=== PATIENT | female | born 1980 | race Two or more races ===

== ENCOUNTER → 2017-04-01 | Outpatient (CLI) | payer OTHER ==
[2015-07-27 15:28] VITALS: BP 120/79
--- NOTE | 2017-04-01 13:33 | RAD ---
Ultrasound OB Indication: OB ultrasound for evaluation of size/dates. . LMP 12/21/2016 Technique: Transabdominal and transvaginal Grayscale and color Doppler ultrasound images of the pelvis obtained. Comparison: Previous ultrasound from 05/11/2015 Findings: The uterus measures 12 x 8.7 x 7.2 cm and is within normal limits. Single intrauterine 9 gestational sac is seen measuring 3.3 cm corresponding to estimated gestation age of 8 weeks 3 days. No yolk sac or pole visualized. Right ovary is visualized and measures 4.0 x 1.5 x 2.4 cm with evidence of blood flow. Left ovary is visualized and measures 3.7 x 2.0 x 4.1 cm with evidence of blood flow. Cervix is closed. No free pelvic fluid. Impression: Intrauterine gestational sac with mean sac diameter measuring 3.2 cm corresponding to gestational age of 8 weeks 3 days. Nonvisualization of pole. Findings concerning for first trimester or ectopic . No suspicious adnexal masses. Correlate with beta-hCG.
== END | disposition home or self-care (01) ==
LOC: US 10:37
PROVIDERS: ATTEND Family Medicine
DX: Z34.81 Encounter for supervision of other normal pregnancy, first trimester (principal); Z3A.08 8 weeks gestation of pregnancy
CPT/HCPCS: 76801; 76817

== ENCOUNTER → 2018-06-09 | Outpatient (CLI) | payer BC, OTHER ==
[2015-07-27 15:28] VITALS: BP 120/79
--- NOTE | 2018-06-09 17:03 | RAD ---
Clinical indications: Size/date discrepancy. COMPARISON: March 03, 2018. Findings: A single intrauterine fetus is seen in cephalic position. heart rate is 149 beats per minute. BPD is 7.53 cm which equals 30 weeks 1 day. HC is 28.85 cm which equals 31 weeks 5 days. AC is 26.87 cm which equals 31 weeks 0 days. FL is 5.85 cm which equals 30 weeks 4 days. Average gestational age by ultrasound is 30 weeks 6 days +/- 21 days with an EDC of August 12, 2018. There as been normal interval growth from the prior study. Estimated weight is 3 lbs and 10 oz. The anatomy was not evaluated. CHRIS using the four quadrant method is 12.2 cm. Cervical length is 4.7 cm. A grade 0 posterior placenta is seen. No placenta previa and no placenta abruptio is identified. The maternal ovaries are not visualized. . Impression: Single IUP with gestational age of 30 weeks 6 days Electronically signed by: Piotr Nieto MD (06/09/2018 4:58 PM) [facility]
== END | disposition home or self-care (01) ==
LOC: US 13:51
PROVIDERS: ATTEND Family Medicine
DX: O09.513 Supervision of elderly primigravida, third trimester (principal); Z3A.30 30 weeks gestation of pregnancy
CPT/HCPCS: 76805

== ENCOUNTER → 2019-08-30 | Outpatient (CLI) | payer BC, MEDICAID ==
[2018-08-14 08:30] VITALS: BP 112/74
--- NOTE | 2019-08-30 17:18 | KCIC ---
OB <14 WKS W/TV History: Vaginal bleeding, , unknown dates Comparison: None. Findings: Multiple transabdominal sonographic images of the pelvis are submitted. Uterus measured 11 x 4.4 x 6.2 cm. No intrauterine gestational sac is demonstrated. Endometrium measured about 1.2 cm in thickness. Transvaginal ultrasound: Multiple transvaginal sonographic images of pelvis are submitted. No intrauterine gestational sac is demonstrated. There is somewhat heterogeneous appearance of the endometrium, maximal thickness about 1.4 cm. There is trace free fluid in the pelvis. Right ovary measured 3.6 x 1.8 x 3 cm, normal low resistance vascularity, no solid or cystic lesion demonstrated. Left ovary measured 2.5 x 1.7 x 2.5 cm with normal low resistance vascularity. There is a focus of different echogenicity with internal echoes of the left ovary estimated about 1.9 x 1.6 x 1.6 cm in size, not associated with internal vascularity or significant peripheral vascularity. Impression: 1. No intrauterine gestational sac is demonstrated at this time for which correlation with quantitative beta hCG values and short-term follow-up imaging if needed recommended. There is trace free fluid in the pelvis. There is a focus of different echogenicity of the left ovary possibly sequela of corpus luteal cyst or other complex or hemorrhagic cyst, not associated with significant vascularity. Electronically signed by: Geovany Castillo MD (08/30/2019 5:15 PM) [id number]
== END | disposition home or self-care (01) ==
LOC: KCIC US 11:01
PROVIDERS: ATTEND Family Medicine
DX: N93.9 Abnormal uterine and vaginal bleeding, unspecified (principal)
CPT/HCPCS: 76801; 76817

== ENCOUNTER → 2020-02-07 | Outpatient (CLI) | payer BC, MEDICAID ==
[2018-08-14 08:30] VITALS: BP 112/74
--- NOTE | 2020-02-07 17:05 | RAD ---
INDICATION: Reason: UNSURE DATES / Spl. Instructions: / History: COMPARISON: None. TECHNIQUE: Grayscale and color ultrasound images uterus and adnexa. Transabdominal images obtained. FINDINGS: Uterus: 140 x 100 x 80 mm. Intrauterine is identified with a crown-rump length of 37 mm and heart beat of 171. It is too early in to adequately assess the placenta. Gestational sac unremarkable. 25 mm cystic structure right ovary. Right Ovary: 35 x 34 x 31 mm. Left Ovary: 30 x 24 x 18 mm. Vascular flow identified to bilateral ovaries. IMPRESSION: * Intrauterine is identified with estimated gestational age of 10 weeks and 4 days with estimated due date of 08/31/2020. Recommend routine anomaly screen at 18-22 weeks. * Dominant follicle or small cyst right ovary. Electronically signed by: Endy Hazel MD (02/07/2020 5:03 PM) [id number]
== END | disposition home or self-care (01) ==
LOC: US 14:28
PROVIDERS: ATTEND Family Medicine
DX: Z36.87 Encounter for antenatal screening for uncertain dates (principal); N83.291 Other ovarian cyst, right side; Z3A.10 10 weeks gestation of pregnancy
CPT/HCPCS: 76801

== ENCOUNTER → 2020-03-28 | Outpatient (CLI) | payer BC, MEDICAID ==
[2018-08-14 08:30] VITALS: BP 112/74
--- NOTE | 2020-03-28 15:37 | RAD ---
Examination: PREG MORE THAN OR EQ TO 14 WKS History: Reason: Dates and Placenta Placement; ? Low Lying Placenta / Spl. Instructions: / History: Comparison/Correlation: 02/07/2020 ultrasound exam Findings: OB ultrasound exam was performed. Single living intrauterine gestation is present. movement is evident. Cardiac activity is identified with heart rate of 144 bpm. Three-vessel cord insertion noted. Fluid and urinary bladder is present. Stomach, kidneys, spine, brain, and bilateral extremities are visualized. An area of fluid index is 10.1 cm. Biparietal diameter 3.74 cm corresponding to 17 week 3 day Head circumference is 14.07 cm versus 517 weeks 3 days Abdominal circumference is 12.2 cm corresponding 17 weeks 6 days Femur length is 2.62 cm corresponding to 18 weeks 0 day Head circumference to abdominal circumference ratio is 1.15 Estimated weight is 213 g Gestational age is 17 weeks 5 days Ultrasound EDC is 08/31/2020 Cephalic lie evident. Posterior wall placenta previa identified. Maternal ovaries are not visualized. Impression: Single living intrauterine gestation is present with average ultrasound age of 17 weeks 5 days. Adequate interval growth is noted upon comparison with the previous exam. Breech lie and placenta previa noted. Electronically signed by: Guanaco Benoit MD (03/28/2020 3:34 PM) [id number]
== END | disposition home or self-care (01) ==
LOC: US 15:24
PROVIDERS: ATTEND Family Medicine
DX: O44.42 Low lying placenta NOS or without hemorrhage, second trimester (principal); Z3A.17 17 weeks gestation of pregnancy
CPT/HCPCS: 76805

== ENCOUNTER → 2020-06-25 | Outpatient (CLI) | payer BC, MEDICAID ==
[2018-08-14 08:30] VITALS: BP 112/74
--- NOTE | 2020-06-25 16:26 | RAD ---
EXAM: Limited OB Ultrasound INDICATION: Reason: RECHECK PLACENTA PREVIA / Spl. Instructions: / History: TECHNIQUE: Real-time limited obstetrical ultrasound was performed with permanent freeze-frame documen tation. COMPARISON: None. FINDINGS: Clinical age based on LMP of November 25, 2019 is 30 weeks 3 days with an estimated delivery date of August 31, 2020. POSITION: Breech HEART RATE: 125 bpm CHRIS: 12.3 cm PLACENTA: Posterior. Tip lies 7 cm from the internal os. BPD measures 8.1 cm corresponding with 32 weeks 6 days HC measures 29.0 cm, corresponding with 31 weeks 6 days AC measures 26.9 cm, corresponding with 31 weeks 0 days FL measures 5.9 cm, corresponding with 30 weeks 5 days Average ultrasound age is 31 weeks 4 days with an estimated delivery date by ultrasound of July [id number]. Estimated weight is 1704 +/- 152 g, at the 55th percentile for estimated weight. IMPRESSION: Single live intrauterine gestation in breech presentation with a posterior placenta. No evidence of p revia. Average ultrasound age on this exam is 31 weeks 4 days with an estimated delivery date of 2020. Electronically signed by: Tonia Oreilly MD (06/25/2020 4:24 PM) [id number]
== END ==
LOC: US 10:05
PROVIDERS: ATTEND Family Medicine
DX: O44.03 Complete placenta previa NOS or without hemorrhage, third trimester (principal); Z3A.31 31 weeks gestation of pregnancy
CPT/HCPCS: 76805

== ENCOUNTER → 2020-08-03 | Outpatient (CLI) | payer BC, MEDICAID ==
[2018-08-14 08:30] VITALS: BP 112/74
--- NOTE | 2020-08-03 15:38 | RAD ---
EXAM: Ultrasound OB Greater than 14 weeks INDICATION: Limited OB ultrasound for assessment of position. TECHNIQUE: Real-time obstetrical ultrasound was performed with permanent freeze-frame documentation. COMPARISON: None. FINDINGS: POSITION: Cephalic HEART RATE: 128 bpm CHRSI: 6.5 cm PLACENTA: Posterior CERVICAL LENGTH: Not evaluated MATERNAL UTERUS: Unremarkable. MATERNAL ADNEXA: Unremarkable. AGE/DATES: Gestational Age by LMP: 37 weeks 1 day Gestation Age by US: 37 weeks 3 days EDC by LMP: 08/23/2020 EDC by US: 08/21/2020 WEIGHT: 2989 grams +/- 442 grams PERCENTILE WEIGHT: 43% BIOMETRIC PARAMETERS: BPD: 9.4 cm corresponding with 38 weeks 2 days HC: 33.8 cm corresponding with 38 weeks 5 days AC: 31.8 cm corresponding with 35 weeks 5 days FL: 7.2 cm corresponding with 37 weeks 0 days IMPRESSION: Normal OB ultrasound demonstrating a single viable fetus in cephalic position. Estimated gestational age of 37 weeks 3 days and EDC of 08/21/2020. Electronically signed by: Tonia Oreilly MD (08/03/2020 3:36 PM) [id number]
== END ==
LOC: US 13:19
PROVIDERS: ATTEND Family Medicine
DX: O26.843 Uterine size-date discrepancy, third trimester (principal); Z3A.37 37 weeks gestation of pregnancy
CPT/HCPCS: 76815